=== PATIENT | male | born 1995 | race Caucasian/White ===

== ENCOUNTER 2023-03-05 01:05 | Emergency (ER) | payer OTHER ==
[2023-03-05 01:55] LABS: Absolute Lymphocytes (CBC) 1.2 K/uL (0.7-4.9); Hematocrit 38.4 % (39.6-49.0); Lymphocytes % 12.5 % (15.3-44.8); MCV 85.7 fL (80-100); MPV 9.7 fL (7.6-11.3); RBC Red Blood Cell Count 4.48 M/uL (4.33-5.43)
[2023-03-05 01:58] LABS: Protime INR 1.08
[2023-03-05] MEDS ORDERED: ONDANSETRON 4 MG/2 ML VIAL ONE (02:08)
[2023-03-05] MEDS ORDERED: NA CHLORIDE 0.9% 500 ML ONE (02:08)
[2023-03-05] MEDS ORDERED: FENTANYL CITR 100 MCG/2 ML ONE (02:08)
[2023-03-05 02:14] LABS: Albumin 3.7 g/dL (3.4-5.0); Bilirubin Total 0.5 mg/dL (0.2-1.0); Potassium 3.6 mEq/L (3.5-5.1); Protein, Total 6.8 g/dL (6.4-8.2)
--- NOTE | 2023-03-05 02:47 | EDPHYS ---
Physician Documentation [facility] Name: Kevin Cox Age: 27 yrs Sex: Male : 1995 Arrival Date: 03/05/2023 Time: 01:05 Bed 18 Private MD: OPAL Physician Tae Chang HPI: 03/05 01:28 This 27 yrs old Male presents to ER via Unassigned with complaints of maulik Testicular Swelling, Abdominal Swelling, General Weakness, Nausea. 01:28 The patient presents with scrotal pain, tenderness. Onset: The symptoms/episode maulik began/occurred yesterday. Modifying factors: The symptoms are alleviated by remaining still, the symptoms are aggravated by movement, pressure. Associated signs and symptoms: The patient has no apparent associated signs or symptoms. The patient has not experienced similar symptoms in the past. Historical: - Allergies: :29 No Known Allergies; pf1 - PMHx: : None; pf1 - PSHx: :29 Vasectomy; wisdom teeth removal; pf1 - Immunization history:: Adult Immunizations up to date, Client reports receiving the 2nd dose of the Covid vaccine, Last tetanus immunization: < 10 years ago Flu vaccine is not up to date. - Social history:: Smoking status: Patient denies any tobacco usage or history of. Patient/guardian denies using alcohol, street drugs. - Family history:: not pertinent. ROS: 01:29 Constitutional: Negative for fever, chills, and weight loss, Eyes: Negative for injury, maulik pain, redness, and discharge, ENT: Negative for injury, pain, and discharge, Neck: Negative for injury, pain, and swelling, Cardiovascular: Negative for chest pain, palpitations, and edema, Respiratory: Negative for shortness of breath, cough, wheezing, and pleuritic chest pain, Abdomen/GI: Negative for abdominal pain, nausea, vomiting, diarrhea, and constipation, Back: Negative for injury and pain, MS/Extremity: Negative for injury and deformity, Skin: Negative for injury, rash, and discoloration, Neuro: Negative for headache, weakness, numbness, tingling, and seizure, Psych: Negative for depression, anxiety, suicide ideation, homicidal ideation, and hallucinations, Allergy/Immunology: Negative for hives, rash, and allergies, Endocrine: Negative for neck swelling, polydipsia, polyuria, polyphagia, and marked weight changes, Hematologic/Lymphatic: Negative for swollen nodes, abnormal bleeding, and unusual bruising. 01:29 : Positive for testicular pain of the shaft of penis, left testicle and right testicle. Exam: :29 Constitutional: This is a well developed, well nourished patient who is awake, alert, maulik and in no acute distress. Head/Face: Normocephalic, atraumatic. Eyes: Pupils equal round and reactive to light, extra-ocular motions intact. Lids and lashes normal. Conjunctiva and sclera are non-icteric and not injected. Cornea within normal limits. Periorbital areas with no swelling, redness, or edema. ENT: Nares patent. No nasal discharge, no septal abnormalities noted. Tympanic membranes are normal and external auditory canals are clear. Oropharynx with no redness, swelling, or masses, exudates, or evidence of obstruction, uvula midline. Mucous membranes moist. Neck: Trachea midline, no thyromegaly or masses palpated, and no cervical lymphadenopathy. Supple, full range of motion without nuchal rigidity, or vertebral point tenderness. No Meningismus. Chest/axilla: Normal chest wall appearance and motion. Nontender with no deformity. No lesions are appreciated. Cardiovascular: Regular rate and rhythm with a normal S1 and S2. No gallops, murmurs, or rubs. Normal PMI, no JVD. No pulse deficits. Respiratory: Lungs have equal breath sounds bilaterally, clear to auscultation and percussion. No rales, rhonchi or wheezes noted. No increased work of breathing, no retractions or nasal flaring. Abdomen/GI: Soft, non-tender, with normal bowel sounds. No distension or tympany. No guarding or rebound. No evidence of tenderness throughout. Back: No spinal tenderness. No costovertebral tenderness. Full range of motion. MS/ Extremity: Pulses equal, no cyanosis. Neurovascular intact. Full, normal range of motion. Neuro: Awake and alert, GCS 15, oriented to person, place, time, and situation. Cranial nerves II-XII grossly intact. Motor strength 5/5 in all extremities. Sensory grossly intact. Cerebellar exam normal. Normal gait. Psych: Awake, alert, with orientation to person, place and time. Behavior, mood, and affect are within normal limits. 01:29 : CVA tenderness, is absent, Male external genitalia: Circumcision noted. swelling: tenderness, is palpated in the right inguinal area, that is moderate, ecchymotic tense scroutum. Vital Signs: 01:23 BP 107 / 70; Pulse 52; Resp 18; Temp 98.2; Pulse Ox 99% on R/A; Weight 74.84 kg; Height pf1 6 ft. 0 in. ; Pain 7/10; 02:15 BP 116 / 68; Pulse 61; Resp 17 S; Pulse Ox 98% on R/A; ha1 02:51 BP 112 / 69; Pulse 70; Resp 18 S; Pulse Ox 100% on R/A; ha1 01:23 Body Mass Index 22.38 (74.84 kg, 182.88 cm) pf1 01:23 Pain Scale: Adult pf1 MDM: 01:21 Patient medically screened. [facility] 01:31 Differential diagnosis: nonspecific abdominal pain. Data reviewed: vital signs, nurses [facility] notes, lab test result(s), radiologic studies, ultrasound. Consideration of Admission/Observation Escalation of care including admission/observation considered. I considered the following discharge prescriptions or medication management in the emergency department Medications were administered in the Emergency Department. See MAR. Test considered but Not performed: CT: no ct abd pelvis. Historians other than the Patient: Spouse/Significant Other: , informed. Care significantly affected by the following chronic conditions: none. Counseling: I had a detailed discussion with the patient and/or guardian regarding: the historical points, exam findings, and any diagnostic results supporting the discharge/admit diagnosis, lab results, radiology results. 03/05 01:27 Order name: CBC with Diff; Complete Time: 02:04 [facility] 03/05 01:27 Order name: Comprehensive Metabolic Panel; Complete Time: 02:21 [facility] 03/05 01:27 Order name: PT-INR; Complete Time: 02:04 [facility] 03/05 01:27 Order name: US Scrotum Testicles [facility] 03/05 02:41 Order name: Ice pack; Complete Time: 02:45 maulik Administered Medications: 01:50 Drug: NS 0.9% IV 500 ml Route: IV; Rate: bolus; Site: right forearm; ha1 02:42 Follow up: Response: No adverse reaction; IV Status: Completed infusion; IV Intake: ha1 500ml 01:50 Drug: Ondansetron IVP 4 mg Route: IVP; Site: right forearm; ha1 02:15 Follow up: Response: No adverse reaction; Nausea is decreased ha1 01:53 Drug: fentaNYL (PF) IVP 50 mcg Route: IVP; Site: left forearm; ha1 02:15 Follow up: Response: No adverse reaction; Pain is decreased; RASS: Alert and Calm (0) ha1 02:51 Drug: [place] PO 10 mg-325 mg 1 tabs Route: PO; ha1 03:05 Follow up: Response: No adverse reaction; Pain is decreased; RASS: Alert and Calm (0) ha1 Disposition Summary: 03/05/23 02:46 Discharge Ordered Location: Home maulik Problem: new maulik Symptoms: have improved maulik Condition: Stable maulik Diagnosis - Postprocedural hemorrhage of skin and subcutaneous tissue following other procedure maulik - VASECTOMY Followup: maulik - With: Private Physician - When: 2 - 3 days - Reason: Recheck today's complaints, Continuance of care, Re-evaluation by your physician Followup: maulik - With: - When: 2 - 3 days - Reason: Recheck today's complaints, Re-evaluation by your physician Discharge Instructions: - Discharge Summary Sheet maulik - Hematoma maulki - Hematoma, [id number] maulik Forms: - Medication Reconciliation Form maulik - Thank You Letter maulik - Antibiotic Education maulik - Prescription Opioid Use maulik - Patient Portal Instructions maulik Prescriptions: - acetaminophen-codeine 300-30 mg Oral tablet - take 2 tablet by ORAL route every 6 hours; 20 tablet; Refills: 0, Product maulik Selection Permitted Signatures: Dispatcher [employer] EDTae Millan MD MD cha Ayala, Heidy, RN RN ha1 Fern Velasco RN RN pf1
--- NOTE | 2023-03-05 02:47 | ER ---
Nurse's Notes [facility] Name: Kevin Cox Age: 27 yrs Sex: Male : 1995 Arrival Date: 03/05/2023 Time: 01:05 Bed 18 Private MD: Diagnosis: Postprocedural hemorrhage of skin and subcutaneous tissue following other procedure-VASECTOMY Presentation: 03/05 01:10 Onset of symptoms was March 04, 2023. ha1 01:23 Chief complaint: Patient states: right testicular pain with swelling and pf1 contusion,onset 1900 yesterday, S/P vasectomy 1330 yesterday. Patient stated took Tylenol #3 at 1900 and 2200 then took Meloxicam and Flexeril at 2345. Coronavirus screen: Vaccine status: Patient reports receiving the 2nd dose of the covid vaccine. Client denies travel out of the [place] in the last 14 days. At this time, the client does not indicate any symptoms associated with coronavirus-19. Ebola Screen: Patient negative for fever greater than or equal to 101.5 degrees Fahrenheit, and additional compatible Ebola Virus Disease symptoms. Initial Sepsis Screen: Does the patient meet any 2 criteria? No. Patient's initial sepsis screen is negative. Does the patient have a suspected source of infection? No. Patient's initial sepsis screen is negative. Risk Assessment: Do you want to hurt yourself or someone else? Patient reports no desire to harm self or others. 01:23 Method Of Arrival: Wheelchair pf1 01:23 Acuity: SULEMA 3 pf1 Triage Assessment: 01:10 General: Appears uncomfortable, Behavior is cooperative. Pain: Complains of pain in ha1 pelvis and groin. Neuro: Level of Consciousness is awake, alert, obeys commands, Oriented to person, place, time, situation. 01:10 Cardiovascular: Patient's skin is warm and dry. Respiratory: Airway is patent ha1 Respiratory effort is even, unlabored, Respiratory pattern is regular, symmetrical. GI: Abdomen is flat, non-distended, Bowel sounds present X 4 quads. Reports nausea. : Swelling noted Reports pain scrotum, testicle, since yesterday. Derm: Skin is pink, warm \T\ dry. Musculoskeletal: Circulation, motion, and sensation intact. Historical: - Allergies: 01:29 No Known Allergies; pf1 - PMHx: : None; pf1 - PSHx: :29 Vasectomy; wisdom teeth removal; pf1 - Immunization history:: Adult Immunizations up to date, Client reports receiving the 2nd dose of the Covid vaccine, Last tetanus immunization: < 10 years ago Flu vaccine is not up to date. - Social history:: Smoking status: Patient denies any tobacco usage or history of. Patient/guardian denies using alcohol, street drugs. - Family history:: not pertinent. Screenin:10 [facility] ED Fall Risk Assessment (Adult) History of falling in the last 3 months, ha1 including since admission No falls in past 3 months (0 pts) Confusion or Disorientation No (0 pts) Intoxicated or Sedated No (0 pts) Impaired Gait No (0 pts) Mobility Assist Device Used No (0 pt) Altered Elimination No (0 pt) Score/Fall Risk Level 0 - 2 = Low Risk Oriented to surroundings, Maintained a safe environment, Educated pt \T\ family on fall prevention, incl call for assistance when getting out of bed, Hourly rounding (assess needs \T\ fall precautionary measures) done. Abuse screen: Denies threats or abuse. Denies injuries from another. Nutritional screening: No deficits noted. Tuberculosis screening: No symptoms or risk factors identified. Assessment: 01:10 Reassessment: see triage assessment. ha1 01:10 GI: Abdomen is flat, non-distended, Bowel sounds present X 4 quads. Abd is soft and non ha1 tender X 4 quads. 02:10 Reassessment: Patient and/or family updated on plan of care and expected duration. Pain ha1 level reassessed. Patient is alert, oriented x 3, equal unlabored respirations, skin warm/dry/pink. 02:45 Reassessment: pt. able to urinate without difficulty. ha1 03:00 Reassessment: Patient and/or family updated on plan of care and expected duration. Pain ha1 level reassessed. Patient is alert, oriented x 3, equal unlabored respirations, skin warm/dry/pink. pain 2/10. Vital Signs: 01:23 BP 107 / 70; Pulse 52; Resp 18; Temp 98.2; Pulse Ox 99% on R/A; Weight 74.84 kg; Height pf1 6 ft. 0 in. ; Pain 7/10; 02:15 BP 116 / 68; Pulse 61; Resp 17 S; Pulse Ox 98% on R/A; ha1 02:51 BP 112 / 69; Pulse 70; Resp 18 S; Pulse Ox 100% on R/A; ha1 01:23 Body Mass Index 22.38 (74.84 kg, 182.88 cm) pf1 01:23 Pain Scale: Adult pf1 ED Course: 01:08 Patient arrived in ED. am2 01:10 Patient has correct armband on for positive identification. Placed in gown. Bed in low ha1 position. Call light in reach. Side rails up X 1. Adult w/ patient. 01:10 Arm band placed on. ha1 01:21 Tae Chang MD is Attending Physician. mauilk 01:29 Triage completed. pf1 01:45 Inserted saline lock: 22 gauge in right forearm, using aseptic technique. Blood ha1 collected. 01:50 PT-INR Sent. ha1 01:50 Comprehensive Metabolic Panel Sent. ha1 01:50 CBC with Diff Sent. ha1 02:05 Kaitlin Mulligan, LOGAN is Primary Nurse. ha1 02:25 Scrotum Testicles In Process Unspecified. EDMS 02:46 Carlos Alberto Kendall MD is Referral Physician. maulik 03:05 No provider procedures requiring assistance completed. ha1 03:05 IV discontinued, intact, bleeding controlled, No redness/swelling at site. Pressure ha1 dressing applied. 03:05 Provided Education on: following up with urology.. ha1 Administered Medications: 01:50 Drug: NS 0.9% IV 500 ml Route: IV; Rate: bolus; Site: right forearm; ha1 02:42 Follow up: Response: No adverse reaction; IV Status: Completed infusion; IV Intake: ha1 500ml 01:50 Drug: Ondansetron IVP 4 mg Route: IVP; Site: right forearm; ha1 02:15 Follow up: Response: No adverse reaction; Nausea is decreased ha1 01:53 Drug: fentaNYL (PF) IVP 50 mcg Route: IVP; Site: left forearm; ha1 02:15 Follow up: Response: No adverse reaction; Pain is decreased; RASS: Alert and Calm (0) ha1 02:51 Drug: [place] PO 10 mg-325 mg 1 tabs Route: PO; ha1 03:05 Follow up: Response: No adverse reaction; Pain is decreased; RASS: Alert and Calm (0) ha1 Medication: 02:30 VIS not applicable for this client. ha1 Intake: 02:42 IV: 500ml; Total: 500ml. ha1 Outcome: 02:46 Discharge ordered by . maulik 03:04 Discharged to home via wheelchair. ha1 03:04 Condition: stable 03:04 Discharge instructions given to patient, family, Instructed on discharge instructions, follow up and referral plans. medication usage, Demonstrated understanding of instructions, follow-up care, medications, Prescriptions given X 1. 03:05 Patient left the ED. ha1 Signatures: Dispatcher [employer] EDMS Tae Chang MD MD cha Moreno, Amanda am2 Kaitlin Mulligan RN RN 1 Fern Velasco RN RN pf1 Corrections: (The following items were deleted from the chart) 02:41 02:31 BP 116 / 68; Pulse 50bpm; Resp 17bpm; Spontaneous; Pulse Ox 98% RA; ha1 ha1 03:15 01:10 : Swelling noted ha1 ha1
[2023-03-05] MEDS ORDERED: HYDROCODONE/APAP 10/325 TAB ONE (02:58)
[2023-03-05 03:14] VITALS: TEMP 98.2
[2023-03-05 03:25] VITALS: BP 112/69; O2SAT 100
--- NOTE | 2023-03-05 17:39 | RAD REPORT ---
EXAM DESCRIPTION: Scrotum Testicles 03/05/2023 2:58 AM CDT CLINICAL HISTORY: 27 years, Male, Pain;Swelling COMPARISON: None. FINDINGS: Multiple grayscale images of the testicles were performed. Color Doppler imaging was used to assess vascular flow. The right testicle measures 3.5 x 2.2 x 2.6 cm, the right epididymis measured 1.2 x 1.1 x 1.5 cm ther e is small right hydrocele. There is a large heterogeneous signal structure within the spermatic cord /scrotal sac adjacent to the testicle with the greatest width measuring 6.4 cm findings could corresp ond to a herniated sac containing omentum. There is small trace of hydrocele. There is normal vascula r flow within the right testicle and right epididymis. The left testicle measured 4.9 x 2.5 x 2.9 cm, the left epididymis measured 1.5 x 0.7 x 8.1 cm there is normal flow within the right testicle and right epididymis. There is no evidence for hydrocele/or varicocele. There is no abnormal masses. No hypoechoic lesion in either testicle. IMPRESSION: No evidence for testicular torsion. Findings highly suggestive with a large right inguin al hernia containing omentum, if concern correlate with CT scan of the abdomen and pelvis. Electronically signed by: Ricki Gill MD 03/05/2023 3:01 AM CDT Due to temporary technical issues with the PACS/Fluency reporting system, reports are being signed by the in house radiologists without review as a courtesy to insure prompt reporting. The interpreting radiologist is fully responsible for the content of the report.
== END 2023-03-05 03:05 | disposition home or self-care (01) ==
LOC: ER 01:05
DX: L76.22 Postprocedural hemorrhage of skin and subcutaneous tissue following other procedure (principal)
CPT/HCPCS: 85025; 36415; 85610; 80053; 76870; 99284; J3010; J2405; J7040